=== PATIENT | male | born 1980 | race Caucasian/White ===

== ENCOUNTER 2020-12-10 11:15 | Emergency (ER) | payer OTHER, SELFPAY ==
[2020-12-10 11:28] VITALS: BP 132/86; PULSE 86; RESP 20; TEMP 36.9; O2SAT 98
--- NOTE | 2020-12-10 12:05 | ED.URI ---
HPI - URI/Sore Throat General Chief Complaint: Upper Respiratory Infection Stated Complaint: SINUS CONGESTION Source: patient Mode of arrival: ambulatory Limitations: no limitations History of Present Illness HPI Narrative: Patient is a 40-year-old male who presents complaining of facial pain and pressure, congestion and headache intermittently x1.5 weeks. He reports a history of Covid in July. He denies fever, chest pain, cough, shortness of breath, nausea, vomiting or diarrhea. He denies taking any [id number] medications for pain relief at this time. He denies significant medical history and takes no daily medications. MD elicited complaint: nasal congestion and sinus pain Related Data Allergies Allergy/AdvReac Type Severity Reaction Status Date / Time azithromycin Allergy Mild HIVES LAST Verified 12/10/20 11:21 DAY OF COURSE Review of Systems Review of Systems: Narrative: CONSTITUTIONAL: Denies fever, chills, or sweats. EYES: Denies visual changes, redness, or discharge. ENT: Reports congestion and sinus pain CARDIOVASCULAR: Denies chest pain, palpitations, or edema. RESPIRATORY: Denies cough or dyspnea. GASTROINTESTINAL: Denies abdominal pain, nausea, vomiting, or diarrhea. GENITOURINARY: Denies dysuria or hematuria. SKIN: Denies rash or itching. MUSCULOSKELETAL: Denies back pain, joint pain, or myalgia. NEUROLOGIC: Denies headache, numbness, dizziness, or weakness. PSYCHIATRIC: Denies anxiety or depression. [facility] Past Medical History Medical History COVID-19 08/19 Hearing loss in left ear Male erectile dysfunction, unspecified Sebaceous cyst (~2017) Surgical History Surgical History No significant past surgical history Family History Family History Father Diabetes mellitus Family history of glaucoma Grandparent Diabetes mellitus Family history of lung cancer Mother Hypertension Social History Social History Alcohol intake: current Drinks per week: 6 Substance use: never Gender identity (if verbalized by the patient): Male Spiritual care concerns: No Agree to blood products: Yes Comments At the time of signature, I have reviewed and agree with nursing past medical, surgical, social, and family history unless otherwise noted. Please see nursing chart for further information. There is no relevant family history pertinent to the presenting complaint. Exam Narrative: Exam Narrative: GENERAL: Well-appearing, well-nourished, and in no acute distress. HEAD: Normocephalic, atraumatic. EYES: EOMI. No redness or drainage. Conjunctiva are normal. ENT: Mucous membranes pink and moist. Nares clear. No rhinorrhea. Maxillary sinus tenderness with palpation TMs normal bilaterally. Throat normal. Uvula midline. NECK: AROM. Supple. No lymphadenopathy. CHEST: No respiratory distress. HEART: Regular rate and rhythm. EXTREMITIES: Normal range of motion. SKIN: Warm, dry, no rash. NEURO: No focal deficits. Alert and oriented x3. Gait steady. PSYCH: Normal affect. No signs of depression or anxiety. Course Vital Signs Vital signs: Vital Signs Temperature 36.9 C 12/10/20 11:28 Pulse Rate 86 12/10/20 11:28 Respiratory Rate 20 12/10/20 11:28 Blood Pressure 132/86 12/10/20 11:28 Pulse Oximetry 98 12/10/20 11:28 Temperature 36.9 C 12/10/20 11:28 Pulse Rate 86 12/10/20 11:28 Respiratory Rate 20 12/10/20 11:28 Blood Pressure 132/86 12/10/20 11:28 Pulse Oximetry 98 12/10/20 11:28 Reviewed MDM - URI/Sore Throat Differential Diagnosis Differential diagnosis: Likely upper respiratory infection, sinusitis, viral infection and pharyngitis Medical Records Attestation: I reviewed the patient's medical records. Critical
== END 2020-12-10 11:50 | disposition home or self-care (01) ==
PROVIDERS: Emergency Provider Nurse Practitioner
DX: J01.00 Acute maxillary sinusitis, unspecified (principal); Z86.16 Personal history of COVID-19
CPT/HCPCS: 99213; G0463

== ENCOUNTER 2025-04-19 09:07 | Observation (INO) | payer OTHER, SELFPAY ==
--- NOTE | ~2025-04-19 | CT_ITS ---
EXAMINATION: CT facial bones w con DATE: 04/19/2025 12:22 INDICATION: Right facial cellulitis TECHNIQUE: Computed tomography (CT) of the facial bones was performed with 75 cc Omnipaque intravenou s contrast. The dose-length product was 293.82 mGy-cm. Automated exposure control and iterative recon struction technique were employed. COMPARISON: None FINDINGS: There is right periorbital soft tissue swelling. No post septal abnormalities. No abscess. There is mild mucosal thickening of the left maxillary sinus. Study limited by motion artifact. No ab normal enhancement. IMPRESSION: 1. Right periorbital soft tissue swelling, most likely secondary to preseptal cellulitis. Differentia l diagnosis includes allergic reaction/angioedema and posttraumatic change. No abscess identified. Reviewed, dictated and finalized at location A. IMPRESSION: 1. Right periorbital soft tissue swelling, most likely secondary to preseptal c ellulitis. Differential diagnosis includes allergic reaction/angioedema and pos ttraumatic change. No abscess identified.
--- OUTSIDE RECORDS SUMMARY | 2025-04-19 09:13 | XMS_ITS | Encounter Summary ---
Author Organization [facility] Healthcare Address [address] [place] [id number] Care Team Providers Care Machine Operator General Name Role Phone Unknown, Notinfile Primary Care Provider Unavail able Reason for Visit * Reason Comments Rash Right face Encounter Details Date Type Department Care Team (Late st Contact Info) Description 04/18/2025 9:00 AM CDT Office Visit [facility] at [address] [address] Matt Gillespie NP [address] [facility] [address] [place] [address] Abscess (Primary Dx) Social History Tobacco Use Types Packs/Day Years Used Date Smoking Tobacco: Never Assessed Sex and Gender Information Value Date Recorded Sex Assigned at Not on file 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 Gender Identity Not on file Sexual Orientation Not on file documented as of this encounter Last Filed Vital Signs Vital Sign Reading Time Taken Comments Blood Pressure 139/90 04/18/2025 8:43 AM CDT Pulse 70 04/18/2025 8:43 AM CDT Temperature 36.8 C (98.3 F) 04/18/2025 8:43 AM CDT Respiratory Rate 16 04/18/2025 8:43 AM CDT Oxygen Saturation 99% 04/18/2025 8:43 AM CDT Inhaled Oxygen Concentration - - Weight 82.6 kg (182 lb) 04/18/2025 8:43 AM CDT Height - - Body Mass Index 28.51 06/17/2024 6:33 PM CDT documented in this encounter Patient Instructions * Patient Instructions* Matt Gillespie NP - 04/18/2025 9:00 AM CDT Keep area clean and dry. Wash daily with soap and water Go to ER or Seek immediate medical attention if you develop: A fast heart rate A fever >100.3F Severe pain Increased pain Rapidly worsening redness and swelling Red streaking coming from site of infection Increased drainage from site Nausea or vomiting A crackling or popping sound or sensation under the skin (this is called crepitus) A dark brown or black appearance to your skin Return to the [facility] or your Primary Care Physician if the red border around the infection area is increasing and/or if symptoms are not improving in 24-48 hours. Doxycycline should be taken with at least 240 mL (8 oz) of water to minimize the risk of the tabletgetting stuck in the esophagus and causing local erosions. Do not take vitamin-D while on doxycycline. Patients should stand or sit upright for at least 30 minutes and should eat a meal after taking medication. You can get a sunburn more easily while taking doxycycline. Wear sunscreen when out side, hat etc, to protect against sunburn * Attachments The following attachments cannot be sent through Care Everywhere. * Abscess (AfterCare(R) Instructions(ER/ED)) (Mexican) documented in this encounter Ordered Prescriptions Prescription Sig Dispense Quantity Refills Last Filled Start Date End Date mupirocin (BACTROBAN) 2 % ointmentIndication s:Abscess Apply topically 3 (three) times a day for 10 days 22 g 04/18/2025 5 doxycycline (VIBRAMYCIN) 100 mg capsuleIndications :Abscess Take 1 tablet/capsule (100 mg total) by mouth 2 (two) times a day for 7 days 14 tablet/capsule 04/18/2025 5 documented in this encounter Progress Notes * Matt Gillespie NP - 04/18/2025 9:00 AM CDT Images from the original note were not included. Subjective/Objective Patient ID: Oliverio Rasmussen is a 44 y.o. male. This patient has verbally consented to recording this visit in order to utilize AI technology in generating this note. Chief Complaint Rash (Right face) History of Present Illness Oliverio Rasmussen is a 44 year old male who presents with swelling and possible infection on the right cheek. Swelling on the right cheek began earlier in the week, with a hard texture and a mole in the area. There is no significant drainage, only clear fluid. Home treatments with warm and cold compresses have not improved the condition. He recalls an allergic reaction to penicillin, resulting in a rash. 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 Review of Systems All other systems reviewed and are negative. Physical Exam HEENT: Firm abscess on right cheek, no drainage. Physical Exam Vitals and nursing note reviewed. Constitutional: General: He is not in acute distress. Appearance: Normal appearance. He is not ill-appearing. HENT: Head: Cardiovascular: Rate and Rhythm: Normal rate. Pulmonary: Effort: Pulmonary effort is normal. Skin: General: Skin is warm and dry. Capillary Refill: Capillary refill takes less than 2 seconds. Findings: Abscess present. Neurological: Mental Status: He is alert and oriented to person, place, and time. Gait: Gait normal. Vitals: 04/18/25 0843 BP: 139/90 Pulse: 70 Resp: 16 Temp: 36.8 ??C (98.3 ??F) TempSrc: Oral SpO2: 99% Weight: 82.6 kg (182 lb) No results found. No past medical history on file. Current Outpatient Medications: azithromycin (ZITHROMAX) 250 mg tablet, Take 2 tablets the first day, then 1 tablet daily for 4 days. (Patient not taking: Reported on 04/18/2025), Disp: 6 tablet, Rfl: 0 doxycycline (VIBRAMYCIN) 100 mg capsule, Take 1 tablet/capsule (100 mg total) by mouth 2 (two) times a day for 7 days, Disp: 14 tablet/capsule, Rfl: 0 mupirocin (BACTROBAN) 2 % ointment, Apply topically 3 (three) times a day for 10 days, Disp: 22 g, Rfl: 0 Allergies Allergen Reactions Penicillins Hives Social History Tobacco Use Smoking status: Not on file Smokeless tobacco: Not on file Substance and Sexual Activity Drug use: Not on file Sexual activity: Not on file Alcohol Use: Not on file No past surgical history on file. Procedures Assessment/Plan 1. Abscess (Primary) - doxycycline (VIBRAMYCIN) 100 mg capsule; Take 1 tablet/capsule (100 mg total) by mouth 2 (two) times a day for 7 days Dispense: 14 tablet/capsule; Refill: 0 - mupirocin (BACTROBAN) 2 % ointment; Apply topically 3 (three) times a day for 10 days Dispense: 22 g; Refill: 0 Results No results found for this or any previous visit (from the past 4 hours). Assessment & Plan Facial Abscess Firm swelling on right cheek, likely abscess. Not ready for incision and drainage. Doxycycline chosen for MRSA coverage due to penicillin allergy. Caution advised for sun sensitivity. - Prescribe doxycycline for MRSA coverage. Advise sun protection measures. - Prescribe topical antibiotic. - Instruct warm compresses 10 minutes, four times daily. - Advise daily cleaning with soap and water. - Recommend taking doxycycline with full glass of water. - Provide educational materials on abscesses, skin infections, and doxycycline. - Monitor for changes in size or symptoms, consider culture if abscess enlarges or changes. Education Keep area clean and dry. Wash daily with soap and water Go to ER or Seek immediate medical attention if you develop: A fast heart rate A fever >100.3F Severe pain Increased pain Rapidly worsening redness and swelling Red streaking coming from site of infection Increased drainage from site Nausea or vomiting A crackling or popping sound or sensation under the skin (this is called crepitus) A dark brown or black appearance to your skin Return to the [facility] or your Primary Care Physician if the red border around the infection area is increasing and/or if symptoms are not improving in 24-48 hours. Doxycycline should be taken with at least 240 mL (8 oz) of water to minimize the risk of the tabletgetting stuck in the esophagus and causing local erosions. Do not take vitamin-D while on doxycycline. Patients should stand or sit upright for at least 30 minutes and should eat a meal after taking medication. You can get a sunburn more easily while taking doxycycline. Wear sunscreen when out side, hat etc, to protect against sunburn Disposition Treatment plan including expectations, follow up, and return precautions discussed with patient/parent, verbalizes understanding. Medication dosage, use, and potential adverse reactions discussed with patient/parent. Advised to follow up with PCP if symptoms do not resolve as expected or sooner if condition worsens. Signs/symptoms warranting ER evaluation reviewed. Patient and/or guardian was given an opportunity to ask questions, questions answered. Matt Gillespie NP This office note has been partially dictated using M*Modal software, and as a result portions of the record may have been created with this software. Occasional wrong-word or '[id number]' substitutions may have occurred due to the inherent limitations of voice recognition software. Read the chartcarefully and recognize, using context, where substitutions have occurred. documented in this encounter Plan of Treatment Not on file documented as of this encounter Visit Diagnoses Diagnosis Abscess- Primary Cellulitis and abscess of unspecified site documented in this encounter Care Teams Machine Operator General Relationship Specialty Start Date End Date Unknown, Notinfile PCP - General 06/17/24 documented as of this encounter
--- OUTSIDE RECORDS SUMMARY | 2025-04-19 09:13 | XMS_ITS | Clinical Summary ---
Author Organization [facility] [employer] Address [address] [place] [address] Care Team Providers Care Press Operator Helper Name Role Phone Unavailable Primary Care Provider Unavailabl e Source Comments [facility] [employer],non-owned Affiliates and Associated Physician Practices is amultiple site organization consisting of ambulatory clinics and hospital sitesin [place], [place], [place] and [place]. This disclosure is being madepursuant to the Care Everywhere program and may not contain all information available regarding this patient. Last updated 18.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 Gender Identity Not on file Sexual Orientation Not on file Plan of Treatment Health Maintenance Due Date Last Done Comments COLOGUARD (AGES 45-75) - COL ON CA SCREENING 1978 COLON MONITORING 1978 COLONOSCOPY - COLON CA SCREENING 1978 CT COLONOGRAPHY - COLON CA SCREENING 1978 Colorectal Cancer Screening 1978 FIT - COLON CA SCREENING 1978 FLEX SIG - COLON CA SCREENING 1978 LIPID TESTING 1978 HIV SCREENING 1993 HEPATITIS C SCREENING 04/19/1996 DTAP/TDAP/TD VACCINES (1 - Tdap) 1997 HEPATITIS B VACCINE (1 of 3 - 19+ 3-dose series) 1997 COVID-19 VACCINE (1 - 2023-2 5 season) 2024 DEPRESSION SCREENING 09/30/2024 INFLUENZA VACCINE (#1) 2025 ZOSTER VACCINE (1 of 2) 2028 HIB VACCINE Aged Out No longer eligi ble based on patient's age to complete this topic HPV VACCINE Aged Out No longer eligi ble based on patient's age to complete this topic MENINGOCOCCAL (Group B) VACC INE SHARED DECISION-MAKING Aged Out No longer eligibl e based on patient's age to complete this topic MENINGOCOCCAL GROUPS A/C/Y/W VACCINE Aged Out No longer eligible b ased on patient's age to complete this topic PNEUMOCOCCAL VACCINE Aged Out No long er eligible based on patient's age to complete this topic Insurance ANTH
--- OUTSIDE RECORDS SUMMARY | 2025-04-19 09:13 | XMS_ITS | Clinical Summary ---
Author Organization [facility] Address [address] [place] [id number] Care Team Providers Care Formwork Carpenter Name Role Phone Unavailable Primary Care Provider Unavailabl e Social History Tobacco Use Types Packs/Day Years Used Date Smoking Tobacco: Never Assessed Sex and Gender Information Value Date Recorded Sex Assigned at Not on file Legal Sex Male 7:08 PM CDT Gender Identity Not on file Sexual Orientation Not on file Plan of Treatment Health Maintenance Due Date Last Done Comments Colorectal Cancer Screening Colonoscopy (10 Years) 1978 Annual Physical 1981 Hepatitis C 1996 DTaP, Tdap and Td Vaccines ( 1 - Tdap) 1997 Hepatitis B Vaccines (1 of 3 - 19+ 3-dose series) 1997 COVID-19 Vaccine ( - 2023-2 5 season) 2024 Meningococcal B Vaccine Aged Out No l onger eligible based on patient's age to complete this topic Meningococcal Vaccine Aged Out No jorge ashlie eligible based on patient's age to complete this topic Pneumococcal Vaccine: Pediat rics (0 to 5 Years) and At-Risk Patients (6 to 49 Years) Aged Out No longer eligible b ased on patient's age to complete this topic RSV Immunizations Under 20 Months Aged Out No longer eligible based on patient's age to complete this topic
--- OUTSIDE RECORDS SUMMARY | 2025-04-19 09:13 | XMS_ITS | Clinical Summary ---
Author Organization [address] Address [address] [place] [id number] Care Team Providers Care Radio Frequency Design Engineer Name Role Phone Unknown, Notinfile Primary Care Provider Unavail able Allergies Active Allergy Reactions Criticality Noted Date Comments Penicillins Hives Medium 06/17/2024 Medications azithromycin (ZITHROMAX) 250 mg tabletIndicatio ns:Strep throat Take 2 tablets the first day, then 1 tablet daily for 4 days. 6 tablet 4 Active Additional Information Patient not taking.Reported on 04/19/2025 doxycycline (VIBRAMYCIN) 100 mg capsuleIndicati ons:Abscess Take 1 tablet/capsule (100 mg total) by mouth 2 (two) times a day for 7 days 14 tablet/capsu le 5 04/25/20 25 Active mupirocin (BACTROBAN) 2 % ointmentIndicat ions:Abscess Apply topically 3 (three) times a day for 10 days 22 g 5 04/28/20 25 Active Active Problems No known active problems Encounters Date Type Department Care Team Description 04/19/2025 8:45 AM CDT Office Visit [facility] at [address] [address] Ewelina Ingram NP Facial abscess (Primary Dx); Eye swelling, right; Nasal swelling 04/18/2025 9:00 AM CDT Office Visit [facility] Medical [facility] at [address] [address] Matt Gillespie NP Abscess (Primary Dx) from Last 3 Months Social History Tobacco Use Types Packs/Day Years Used Date Smoking Tobacco: Never Assessed Sex and Gender Information Value Date Recorded Sex Assigned at Not on file 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 Gender Identity Not on file Sexual Orientation Not on file Obstetrics History Last Filed Vital Signs Vital Sign Reading Time Taken Comments Blood Pressure 136/84 04/19/2025 8:43 AM CDT Pulse 90 04/19/2025 8:43 AM CDT Temperature 36.6 C (97.9 F) 04/19/2025 8:43 AM CDT Respiratory Rate 20 04/19/2025 8:43 AM CDT Oxygen Saturation 98% 04/19/2025 8:43 AM CDT Inhaled Oxygen Concentration - - Weight 82.6 kg (182 lb) 04/19/2025 8:43 AM CDT Height 170.2 cm (5' 7) 06/17/2024 6:33 PM CDT Body Mass Index 28.51 06/17/2024 6:33 PM CDT Plan of Treatment Health Maintenance Due Date Last Done Comments Colon Cancer Screening-Colonoscopy 1978 Depression Screening 1978 Hepatitis C Screening 1978 DTaP/Tdap/Td Vaccine (1 - Tdap) 1989 Hepatitis B Screening 1996 Regular Well Visit/Exam 18-64 1996 Influenza Vaccine (#1) 2025 HPV Vaccines Aged Out No longer eligi ble based on patient's age to complete this topic Pneumococcal vaccine <65 Aged Out No longer eligible based on patient's age to complete this [place] [address] [place] [id number] [facility] Care Teams Radio Frequency Design Engineer Relationship Specialty Start Date End Date Unknown, Notinfile PCP - General 06/17/24
--- OUTSIDE RECORDS SUMMARY | 2025-04-19 09:13 | XMS_ITS | Encounter Summary ---
Author Organization [facility] Healthcare Address [address] [place] [id number] Care Team Providers Care Tire Vulcanizer Name Role Phone Unknown, Notinfile Primary Care Provider Unavail able Reason for Visit * Reason Comments Eye Problem Pt reports eye swell ing has worsened since seen at yesterday. C/o now his face is so swollen he is having difficulty breathing out of R nostril. Encounter Details Date Type Department Care Team (Late st Contact Info) Description 04/19/2025 8:45 AM CDT Office Visit 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
--- OUTSIDE RECORDS SUMMARY | 2025-04-19 09:13 | XMS_ITS | Encounter Summary ---
Author Organization [facility] Address [address] [facility] [place] [address] Care Team Providers Care Senior Dot Net Developer Name Role Phone Unavailable Primary Care Provider Unavailabl e Encounter Details Date Type Department Care Team (Late st Contact Info) Description 10/23/2019 Lab Requisition [facility] [address] 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 Received: 10/23/2019 09:43 AM Pathologist: Tiana Melendez MD Specimen: Skin, left crown 0 1:31 PM SAWMILL TALLY CLERK DERMATOPATHOLOGY LABORATORY Final Diagnosis Specimen A. SKIN, left crown: EPIDERMOID CYST (L72.0) 0 1:31 PM SAWMILL TALLY CLERK DERMATOPATHOLOGY LABORATORY at 1331 SAWMILL TALLY CLERK Clinical History R/O cyst. Cystic nodule. 0 1:31 PM SAWMILL TALLY CLERK DERMATOPATHOLOGY LABORATORY Gross Description Specimen A: Received is one formalin filled container labeled with the patient's name and designated left crown. The specimen consists of a [id number] excision, bisected. Jar 0. 0 1:31 PM [facility] DERMATOPATHOLOGY LABORATORY Microscopic Description Specimen A. SKIN, left crown: Within the dermis, there is a space lined by epithelium that resembles normal epidermis and the infundibular portion of the hair follicle. 0 1:31 PM [facility] DERMATOPATHOLOGY LABORATORY Disclaimer An external and internal positive and negative controls are appropriate for the histochemical, immunohistochemical and immunofluorescence stain(s) in this case (if any), except where stated explicitly. The performance characteristics of the stain(s) cited in this report were developed and its performance characteristic determined by the Dermatopathology Laboratory at [facility], directed by Dr. Vlad Cr. These tests need not be, and therefore are not, approved by the [place] Food and Drug Administration. The tests are used for clinical purposes. Billing Codes Specimen Charges Stain Charges 70639 1 0 1:31 PM [facility] DERMATOPATHOLOGY LABORATORY Embedded Images 0 1:31 PM [facility] DERMATOPATHOLOGY LABORATORY Pathology/Cytolog y TISSUE SPECIMEN FROM SKIN / Unknown 10/22/2019 10/23/2019 9:43 AM SAWMILL TALLY CLERK us Farzana Moreno MD LAB - PATHOLOGY/CYTOLOGY ORD ERABLES Final Result DERMATOPATHOLOGY LABORATORY [facility] - Department of Dermatology [address] [place] [address] [address] [place] [address], [facility] [phone] documented in this encounter Visit Diagnoses Not on filedocumented in this encounter
--- OUTSIDE RECORDS SUMMARY | 2025-04-19 09:13 | XMS_ITS | Referral Summary ---
Author Organization [address] Address [address] [place] [phone] Care Team Providers Care Lifeline Representatives Name Role Phone Unknown, Notinfile Primary Care Provider Unavail able Encounters Date Type Department Care Team Description 04/19/2025 8:45 AM CDT Office Visit [facility] at [address] [phone] Ewelina Ingram NP Facial abscess (Primary Dx); Eye swelling, right; Nasal swelling 04/18/2025 9:00 AM CDT Office Visit [facility] Care at [address] [phone] Matt Gillespie NP Abscess (Primary Dx) from Last 3 Months Allergies Active Allergy Reactions Criticality Noted Date [...] Active Active Problems No known active problems Social History Tobacco Use Types Packs/Day Years Used Date Smoking Tobacco: Never Assessed Sex and Gender Information Value Date Recorded Sex Assigned at Not on file 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
[2025-04-19 10:37] VITALS: BP 143/95; PULSE 81; RESP 20; TEMP 36.9; O2SAT 98
--- OUTSIDE RECORDS SUMMARY | 2025-04-19 10:50 | XMS_ITS | Encounter Summary ---
Author Organization [facility] Address [address] [facility] [place] [address] Care Team Providers Care Engine Service Repairer Name Role Phone Unavailable Primary Care Provider Unavailabl e Encounter Details Date Type Department Care Team (Late st Contact Info) Description 10/23/2019 Lab Requisition [facility] DermPath Lab [address] [facility], [place] [phone] Farzana Moreno MD [address] [facility] 3 [place] [address] Social History Tobacco Use Types Packs/Day Years Used Date Smoking Tobacco: Never Assessed Sex and Gender Information Value Date Recorded Sex Assigned at Not on file 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 Gender Identity Not on file Sexual Orientation Not on file documented as of this encounter Plan of Treatment Not on file documented as of this encounter Procedures Procedure Name Priority Date/Time Associated Diagnosis Comments DERMATOPATHOLOGY Routine 10/22/2019 12:0 0 AM AIRPORT ELECTRICIAN documented in this encounter Results * DERMATOPATHOLOGY (10/22/2019 12:00 AM AIRPORT ELECTRICIAN) Case Report Dermatopathology Report Case: [id number] Authorizing Provider: Farzana Moreno MD Collected: 10/22/2019 12:00 AM Ordering Location: [facility] DermPath Lab Received: 10/23/2019 09:43 AM Pathologist: Tiana Melendez MD Specimen: Skin, left crown 0 1:31 PM AIRPORT ELECTRICIAN DERMATOPATHOLOGY LABORATORY Final Diagnosis Specimen A. SKIN, left crown: EPIDERMOID CYST (L72.0) 0 1:31 PM AIRPORT ELECTRICIAN DERMATOPATHOLOGY LABORATORY at 1331 AIRPORT ELECTRICIAN Clinical History R/O cyst. Cystic nodule. 0 1:31 PM AIRPORT ELECTRICIAN DERMATOPATHOLOGY LABORATORY Gross Description Specimen A: Received is one formalin filled container labeled with the patient's name and designated left crown. The specimen consists of a [id number] excision, bisected. Jar 0. 0 1:31 PM [facility] DERMATOPATHOLOGY LABORATORY Microscopic Description Specimen A. SKIN, left crown: Within the dermis, there is a space lined by epithelium that resembles normal epidermis and the infundibular portion of the hair follicle. 0 1:31 PM [facility] DERMATOPATHOLOGY LABORATORY Disclaimer An external and internal positive and negative controls are appropriate for the histochemical, immunohistochemical and immunofluorescence stain(s) in this case (if any), except where stated explicitly. The performance characteristics of the stain(s) cited in this report were developed and its performance characteristic determined by the Dermatopathology Laboratory at [facility], directed by Dr. Vlad Cr. These tests need not be, and therefore are not, approved by the [place] Food and Drug Administration. The tests are used for clinical purposes. Billing Codes Specimen Charges Stain Charges 16612 1 0 1:31 PM [facility] DERMATOPATHOLOGY LABORATORY Embedded Images 0 1:31 PM [facility] DERMATOPATHOLOGY LABORATORY Pathology/Cytolog y TISSUE SPECIMEN FROM SKIN / Unknown 10/22/2019 10/23/2019 9:43 AM AIRPORT ELECTRICIAN us Farzana Moreno MD LAB - PATHOLOGY/CYTOLOGY ORD ERABLES Final Result DERMATOPATHOLOGY LABORATORY [facility] - Department of Dermatology [address] [place] [address] [address] [place] [address], [facility] [phone] documented in this encounter Visit Diagnoses Not on filedocumented in this encounter
--- OUTSIDE RECORDS SUMMARY | 2025-04-19 10:50 | XMS_ITS | Encounter Summary ---
Author Organization [facility] Address [address] [place] [address] Care Team Providers Care Data Warehousing Manager Name Role Phone Unknown, Notinfile Primary Care Provider Unavail able Reason for Visit * Reason Comments Eye Problem Pt reports eye swell ing has worsened since seen at yesterday. C/o now his face is so swollen he is having difficulty breathing out of R nostril. 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
--- OUTSIDE RECORDS SUMMARY | 2025-04-19 10:50 | XMS_ITS | Clinical Summary ---
Author Organization [facility] Address [address] [place] [address] Care Team Providers Care Fbi Profiler Name Role Phone Unavailable Primary Care Provider Unavailabl e Source Comments [facility],non-owned Affiliates and Associated Physician Practices is amultiple site organization consisting of ambulatory clinics and hospital sitesin [place], [place], [place] and [place]. This disclosure is being madepursuant to the Care Everywhere program and may not contain all information available regarding this patient. 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
--- OUTSIDE RECORDS SUMMARY | 2025-04-19 10:50 | XMS_ITS | Clinical Summary ---
Author Organization [facility] Address [address] [place] [address] Care Team Providers Care Real Estate Administrative Assistant Name Role Phone Unavailable Primary Care Provider [...]
--- OUTSIDE RECORDS SUMMARY | 2025-04-19 10:50 | XMS_ITS | Encounter Summary ---
Author Organization [facility] Address [address] [place] [address] Care Team Providers Care Softball Coach Name Role Phone Unknown, Notinfile Primary Care Provider Unavail able Reason for Visit * Reason Comments Rash Right face Encounter Details Date Type Department Care Team (Late st Contact Info) Description 04/18/2025 9:00 AM CDT Office Visit [facility] at [address] [address] Mtat Gillespie NP [address] [facility] [address] [place] [address] Abscess (Primary Dx) Social History Tobacco Use Types Packs/Day Years Used Date Smoking Tobacco: Never Assessed Sex and Gender Information Value Date Recorded Sex Assigned at Not on file 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 * Abscess (AfterCare(R) Instructions(ER/ED)) (Nauruan) documented in this encounter Ordered Prescriptions Prescription [...] created with this software. Occasional wrong-word or '[id number]-w-gypb' substitutions may have occurred due to the inherent limitations of voice recognition software. Read the chartcarefully and recognize, using context, where substitutions have occurred. documented in this encounter Plan of Treatment Not on file documented as of this encounter Visit Diagnoses Diagnosis Abscess- Primary Cellulitis and abscess of unspecified site documented in this encounter Care Teams Softball Coach Relationship Specialty Start Date End Date Unknown, Notinfile PCP - General 06/17/24 documented as of this encounter
--- OUTSIDE RECORDS SUMMARY | 2025-04-19 10:51 | XMS_ITS | Clinical Summary ---
Author Organization [address] Address [address] [place] [phone] Care Team Providers Care Dice Dealer Name Role Phone Unknown, Notinfile Primary Care [...] Description 04/19/2025 8:45 AM CDT Office Visit [facility] at [address] [phone] Ewelina Ingram NP Facial abscess (Primary Dx); Eye swelling, right; Nasal swelling 04/18/2025 9:00 AM CDT Office Visit [facility] at [address] [address] Matt Gillespie NP Abscess (Primary Dx) from Last 3 Months Social History Tobacco Use Types Packs/Day Years Used Date Smoking Tobacco: Never Assessed Sex and Gender Information Value Date Recorded Sex Assigned at Not on file 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
--- OUTSIDE RECORDS SUMMARY | 2025-04-19 10:51 | XMS_ITS | Referral Summary ---
Author Organization [address] Address [address] [place] [phone] Care Team Providers Care Registered Nurse Obstetrics Name Role Phone Unknown, Notinfile Primary Care Provider Unavail able Encounters Date Type Department Care Team Description 04/19/2025 8:45 AM CDT Office Visit [facility] at [address] [phone] Ewelina Ingram NP Facial abscess (Primary Dx); Eye swelling, right; Nasal swelling 04/18/2025 9:00 AM CDT Office Visit [facility] at [address] [phone] Matt Gillespie NP Abscess (Primary [...] on file 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
[2025-04-19 11:22] LABS: Hematocrit 45.7 % (42.0-52.0); Hemoglobin 16.1 g/dL (14.0-18.0); Immature Granulocyte Percent A 0.3 % (0-0.5); Lymphocytes Absolute Auto 1.09 K/mm3 (0.9-3.2); Mean Corpuscular HGB Conc 35.2 g/dl (32-36); Mean Corpuscular Hemoglobin 30.4 pg (26-34); Mean Corpuscular Volume 86.2 fl (80-100); Nucleated Red Blood Cells Absolute Auto 0.000 K/mm3 (0.0-0.012); Nucleated Red Blood Cells Perc 0.0 % (0.0-0.2); Platelet Count Result 252 k/mm3 (150-375); Red Blood Count 5.30 M/mm3 (4.6-6.20); White Blood Count 6.9 K/mm3 (4.5-10.0)
--- NOTE | 2025-04-19 11:34 | ED_ITS ---
HPI - Skin/Abscess/Foreign Bdy General Chief complaint: Skin/Abscess/Foreign Body <WING Pérez Last Filed: 04/19/25 16:38> Stated complaint: facial abscess <WING Pérez Last Filed: 04/19/25 16:38> Time Seen by Provider: 04/19/25 10:42 <WING Pérez Last Filed: 04/19/25 16:38> Source: patient <WING Pérez Last Filed: 04/19/25 16:38> Mode of arrival: ambulatory <WING Pérez Filed: 04/19/25 16:38> Limitations: no limitations <WING Pérez Last Filed: 04/19/25 16:38> History of Present Illness HPI narrative: Patient is a 44 y/o male who presents to the ED with c/o R facial/eye swelling. Patient reports he 1st noticed an area of swelling and redness around a mole on his right facial cheek. He thought he was developing a pimple around the mole. He went to an urgent care yesterday and was prescribed doxycycline. Reports the redness has continued to spread, having swelling/redness to his right inferior periorbital region. Denies fevers. Denies hx of DM. Denies pain in his R eye, vision changes, pain with eye movements. <WING Pérez Last Filed: 04/19/25 16:38> Related Data Home medications: Home Medications ?Medication ?Instructions ?Recorded ?Confirmed ?Last Taken ?Type doxycycline hyclate 100 mg capsule 100 mg PO Q24H 04/19/25 04/19/25 04/19/25 History ibuprofen 200 mg tablet (Advil) 400 mg PO Q6H PRN pain 04/19/25 04/19/25 04/19/25 History mupirocin 2 % topical ointment 1 applic topical BID 04/19/25 04/19/25 04/18/25 History <WING Pérez Last Filed: 04/19/25 16:38> Allergies/Adverse reactions: Allergies Allergy/AdvReac Type Severity Reaction Status Date / Time Penicillins Allergy Hives Verified 04/19/25 16:06 <Zaynab Pretty PA-C - Last Filed: 04/19/25 16:38> Review of Systems 2 Review of Systems: All systems reviewed & are unremarkable except as noted in HPI. <Zaynab Pretty PA-C - Last Filed: 04/19/25 16:38> All systems reviewed & are unremarkable except as noted in HPI and below < Zaynab Pretty PA-C - Last Filed: 04/19/25 16:38> [facility] Past Medical History Medical History: Medical History COVID-19 08/19 Hearing loss in left ear Male erectile dysfunction, unspecified Sebaceous cyst (~2017) <Zaynab Pretty PA-C - Last Filed: 04/19/25 16:38> Surgical History Surgical History: Surgical History No significant past surgical history <Zaynab Pretty PA-C - Last Filed: 04/19/25 16:38> Family History Family History: Family History Father Diabetes mellitus Family history of glaucoma Grandparent Diabetes mellitus Family history of lung cancer Mother Hypertension <Zaynab Pretty PA-C - Last Filed: 04/19/25 16:38> Social History Social History: Social History Smoking status: Never smoker Alcohol intake: current Drinks per week: 1 Substance use: never Substance use type: does not use Do You Feel Safe in your Home?: Yes Lack of Transportation: No Lack of Food: Never True Current Housing: I Have Housing Concerned About Future Housing: No Difficulty Paying Gas/Electric Bills: No Difficulty Paying for Meds: No Currently Unemployed: No Education: High School Diploma/GED Difficulty w/ Childcare or Family Care: No Living arrangements: alone Occupation/Education: occupation Gender identity (if verbalized by the patient): Male Spiritual care concerns: No Agree to blood products: Yes <Zaynab Pretty PA-C - Last Filed: 04/19/25 16:38> Exam 2 Narrative: GENERAL: Well appearing, well-nourished, non-toxic, in no acute distress. HEAD: Normocephalic, atraumatic. EENT: R maxillary region with raised erythematous indurated lesion w/ slight scabbing present. No pustular formation or drainage. Moderate induration surrounding lesion. Erythema and moderate swelling extending up into her right eye inferior periorbital region. Eye itself is normal. PERRLA, EOMI. No pain with extraocular movements. Conjunctivae is clear. No foreign body. No chemosis or proptosis. No oral mucosal lesions, dental caries, or evidence of abscess intraorally. RESPIRATORY: Airway patent, respirations nonlabored. Clear to auscultation bilaterally, no rales, rhonchi, wheezing. CARDIOVASCULAR: Regular rate and rhythm MUSCULOSKELETAL: Moves all extremities. No gross deformities. SKIN: Warm, dry, normal color. NEURO: A&O X3. Speech clear. Cranial nerves II-XII grossly intact. Steady gait. No ataxic movements. PSYCHIATRIC: Appropriate mood and affect. Normal interaction. <Zaynab Pretty PA-C - Last Filed: 04/19/25 16:38> Course SENIOR UI UX DEVELOPER/PA Physician Supervision For this patient encounter, I reviewed the SENIOR UI UX DEVELOPER or PA documentation, treatment plan, and medical decision making; and I had [id number] time with this patient. <Ed Gallardo MD - Last Filed: 04/19/25 21:51> Vital Signs Vital signs: Vital Signs Temperature 98.5 F 04/19/25 10:37 Pulse Rate 81 04/19/25 10:37 Respiratory Rate 20 04/19/25 10:37 Blood Pressure 143/95 H 04/19/25 10:37 Pulse Oximetry 98 04/19/25 10:37 Oxygen Delivery Room Air 04/19/25 10:37 Temperature 97 F L 04/19/25 20:14 Pulse Rate 70 04/19/25 20:14 Respiratory Rate 20 04/19/25 20:14 Blood Pressure 140/83 04/19/25 20:14 Pulse Oximetry 97 04/19/25 20:14 Oxygen Delivery Room Air 04/19/25 10:37 <Zaynab Pretty PA-C - Last Filed: 04/19/25 16:38> Vital Signs Temperature 98.5 F 04/19/25 10:37 Pulse Rate 81 04/19/25 10:37 Respiratory Rate 20 04/19/25 10:37 Blood Pressure 143/95 H 04/19/25 10:37 Pulse Oximetry 98 04/19/25 10:37 Oxygen Delivery Room Air 04/19/25 10:37 Temperature 97 F L 04/19/25 20:14 Pulse Rate 70 04/19/25 20:14 Respiratory Rate 20 04/19/25 20:14 Blood Pressure 140/83 04/19/25 20:14 Pulse Oximetry 97 04/19/25 20:14 Oxygen Delivery Room Air 04/19/25 10:37 <Ed Gallardo MD - Last Filed: 04/19/25 21:51> MDM - Skin/Abscess/Foreign Bdy MDM Narrative Medical decision making narrative: Patient presented to ED with swelling, redness to right-sided face. Began yesterday. Has progressed evidence to inferior periorbital region. Patient in no acute distress. Denying any eye complaints, vision changes, pain with extraocular movements. No obvious signs of orbital cellulitis. No eye pain, chemosis, proptosis. Cbc without leukocytosis. CMP is unremarkable. CT facial bones with contrast obtained and showing evidence consistent with preseptal cellulitis. No evidence of abscess. No evidence of septal cellulitis. Discussed lab and imaging findings with patient. Given significant swelling/erythema/progression over two days, will admit overnight for IV antibiotics. Patient in agreement with this plan. Discussed case with Julieta CAMILO hospitalist, accepted patient for admission. Patient started on vancomycin and rocephin 2g per EMRA/Up To Date guidelines. <Zaynab Pretty PA-C - Last Filed: 04/19/25 16:38> Medical Records Attestation: I reviewed the patient's medical records. <Zaynab Pretty PA-C - Last Filed: 04/19/25 16:38> Lab Data Attestation: I reviewed the patient's lab results. <Zaynab Pretty PA-C - Last Filed: 04/19/25 16:38> Result diagrams: 04/19/25 11:14 04/19/25 11:14 <Zaynab Pretty PA-C - Last Filed: 04/19/25 16:38> Labs: Lab Results 04/19/25 Range/Units 11:14 WBC 6.9 (4.5-10.0) K/mm3 RBC 5.30 (4.6-6.20) M/mm3 Hgb 16.1 (14.0-18.0) g/dL Hct 45.7 (42.0-52.0) % MCV 86.2 (80-100) fl MCH 30.4 (26-34) pg MCHC 35.2 (32-36) g/dl RDW 12.2 (11.5-14.5) % Plt Count 252 (150-375) k/mm3 MPV 9.3 (7.4-10.4) fl Immature Gran % (Auto) 0.3 (0-0.5) % Neut % (Auto) 70.6 (45.5-73.1) % Lymph % (Auto) 15.8 L (18.3-44.2) % [place] % (Auto) 11.6 H (2.6-8.5) % Eos % (Auto) 1.0 (0-4.4) % Baso % (Auto) 0.7 (0.2-1.2) % Lymph # (Auto) 1.09 (0.9-3.2) K/mm3 [place] # (Auto) 0.8 H (0.1-0.6) K/mm3 Eos # (Auto) 0.1 (0-0.3) K/mm3 Baso # (Auto) 0.1 (0.0-0.1) K/mm3 Abs Immat Gran (auto) 0.02 (0.00-0.031) K/mm3 Absolute Neuts (auto) 4.9 (1.3-6.7) K/mm3 Absolute Nucleated RBC 0.000 (0.0-0.012) K/mm3 Nucleated RBC % 0.0 (0.0-0.2) % Sodium 138 (137-145) mmol/L Potassium 4.2 (3.4-5.0) mmol/L Chloride 104 (98-107) mmol/L Carbon Dioxide 26 (22-30) mmol/L Anion Gap 8 (4-12) mmol/L BUN 11 (9-20) mg/dL Creatinine 0.81 (0.7-1.3) mg/dL Estim Creat Clear Calc 93 ml/min Estimated GFR > 60 (59 - ) Glucose 111 H (65-110) mg/dL Calcium 9.3 (8.4-10.2) mg/dL Total Bilirubin 0.4 (0.2-1.3) mg/dL AST 39 (17-59) U/L ALT 60 H (6-50) U/L Alkaline Phosphatase 64 (38-126) U/L C-Reactive Protein 1.1 (<1.0) mg/dL Total Protein 8.0 (6.3-8.2) g/dL Albumin 4.4 (3.5-5.1) g/dL <Zaynab Pretty PA-C - Last Filed: 04/19/25 16:38> Lab Results 04/19/25 Range/Units 11:14 WBC 6.9 (4.5-10.0) K/mm3 RBC 5.30 (4.6-6.20) M/mm3 Hgb 16.1 (14.0-18.0) g/dL Hct 45.7 (42.0-52.0) % MCV 86.2 (80-100) fl MCH 30.4 (26-34) pg MCHC 35.2 (32-36) g/dl RDW 12.2 (11.5-14.5) % Plt Count 252 (150-375) k/mm3 MPV 9.3 (7.4-10.4) fl Immature Gran % (Auto) 0.3 (0-0.5) % Neut % (Auto) 70.6 (45.5-73.1) % Lymph % (Auto) 15.8 L (18.3-44.2) % [place] % (Auto) 11.6 H (2.6-8.5) % Eos % (Auto) 1.0 (0-4.4) % Baso % (Auto) 0.7 (0.2-1.2) % Lymph # (Auto) 1.09 (0.9-3.2) K/mm3 [place] # (Auto) 0.8 H (0.1-0.6) K/mm3 Eos # (Auto) 0.1 (0-0.3) K/mm3 Baso # (Auto) 0.1 (0.0-0.1) K/mm3 Abs Immat Gran (auto) 0.02 (0.00-0.031) K/mm3 Absolute Neuts (auto) 4.9 (1.3-6.7) K/mm3 Absolute Nucleated RBC 0.000 (0.0-0.012) K/mm3 Nucleated RBC % 0.0 (0.0-0.2) % Sodium 138 (137-145) mmol/L Potassium 4.2 (3.4-5.0) mmol/L Chloride 104 (98-107) mmol/L Carbon Dioxide 26 (22-30) mmol/L Anion Gap 8 (4-12) mmol/L BUN 11 (9-20) mg/dL Creatinine 0.81 (0.7-1.3) mg/dL Estim Creat Clear Calc 93 ml/min Estimated GFR > 60 (59 - ) Glucose 111 H (65-110) mg/dL Calcium 9.3 (8.4-10.2) mg/dL Total Bilirubin 0.4 (0.2-1.3) mg/dL AST 39 (17-59) U/L ALT 60 H (6-50) U/L Alkaline Phosphatase 64 (38-126) U/L C-Reactive Protein 1.1 (<1.0) mg/dL Total Protein 8.0 (6.3-8.2) g/dL Albumin 4.4 (3.5-5.1) g/dL <Ed Gallardo MD - Last Filed: 04/19/25 21:51> Imaging Data Attestation: I personally reviewed and interpreted this imaging study as follows: < Zaynab Pretty PA-C - Last Filed: 04/19/25 16:38> Radiologist's impression: ITS Impressions Face CT 04/19/25 13:16 IMPRESSION: 1. Right periorbital soft tissue swelling, most likely secondary to preseptal cellulitis. Differential diagnosis includes allergic reaction/angioedema and posttraumatic change. No abscess identified. <Zaynab Pretty PA-C - Last Filed: 04/19/25 16:38> Discharge Plan Discharge Clinical Impression: Preseptal cellulitis of right eye <Zaynab Pretty PA-C - Last Filed: 04/19/25 16:38> Patient Disposition: Still a Patient <Zaynab Pretty PA-C - Last Filed: 04/19/25 16:38> Condition: Stable <WING Pérez Last Filed: 04/19/25 16:38>
[2025-04-19 11:47] VITALS: BP 131/92; PULSE 75; RESP 16; O2SAT 99
[2025-04-19 11:57] LABS: Alanine Aminotransferase 60 U/L (6-50); Albumin Level 4.4 g/dL (3.5-5.1); Alkaline Phosphatase 64 U/L (38-126); Anion Gap 8 mmol/L (4-12); Aspartate Amino Transferase 39 U/L (17-59); Bilirubin,Total 0.4 mg/dL (0.2-1.3); Blood Urea Nitrogen 11 mg/dL (9-20); CRP 1.1 mg/dL (<1.0); Calcium 9.3 mg/dL (8.4-10.2); Carbon Dioxide 26 mmol/L (22-30); Chloride 104 mmol/L (98-107); Estimated CRCL calculation 93 ml/min; Estimated Glomerular Filt Rate > 60; Glucose 111 mg/dL (65-110); Potassium 4.2 mmol/L (3.4-5.0); Sodium 138 mmol/L (137-145); Total Protein 8.0 g/dL (6.3-8.2)
--- NOTE | 2025-04-19 14:13 | PC.NURSE ---
Update by TON lundy and this RN.
[2025-04-19] MEDS: cefTRIAXone 2 GM in SODIUM CHLORIDE 0.9% IV 100 ML 200 ML IVPB (15:33)
[2025-04-19 15:43] VITALS: BP 149/86; PULSE 66; RESP 16; O2SAT 98
--- NOTE | 2025-04-19 15:59 | ADMGEN ---
This patient, Oliverio Rasmussen, was admitted to 3 [facility] Surg Room 314-01. Patient/family oriented to hospital policies and general routines including ID bracelet, bed and alarms, visiting hours, pain management, procedures, bathroom and other care routines, personal items, smoking policy, room service/diet, and visiting hours. Information on how to activate the Rapid Response Team has been discussed. Patient/Family are encouraged to report perceived risks to care and to ask questions if they do not understand what they are told or what they should do.
[2025-04-19 16:00] VITALS: BMI 28.5
[2025-04-19 16:07] VITALS: BP 143/94; PULSE 66; RESP 18; TEMP 35.9; O2SAT 100
[2025-04-19] MEDS: VANCOMYCIN 2,000 MG/NS 500 ML 2,000 MG/500 ML BAG 250 MG IVPB (16:49)
--- NOTE | 2025-04-19 16:50 | P.HP_ITS ---
H&P: HPI History of Present Illness Date/Time: 04/19/25 17:00 Chief Complaint: Right facial swelling. Narrative: This is a 44-year-old male without any significant medical history presented to the emergency department via private vehicle for evaluation of right facial swelling. He noticed what he thought was a pimple around a mole that he has on his right cheek. He went to Urgent Care yesterday and was prescribed doxycycline of which he has taken 2 doses. The redness and swelling have continued to spread and are now up to the right eyelids. There has been no drainage from the area and he denies trying to open the pimple. He has no pain with extra ocular motions. He also denies fever, chills, sweats, nausea, and vomiting. No know history of MRSA. In the ED: He was afebrile on arrival with a blood pressure of 143/95. Labs were without any significant deviations. Facial CT showed findings of right periorbital soft tissue swelling with no abscess identified. He was given ceftriaxone 2 g and vancomycin 2000 mg and he is being admitted in this setting for further IV antibiotics. Review of Systems Review of Systems: 12 systems were reviewed and are negativ e except for as per HPI. [facility] Past Medical History Medical History COVID-19 08/19 Hearing loss in left ear Male erectile dysfunction, unspecified Sebaceous cyst (~2018) Surgical History Surgical History No significant past surgical history Family History Family History Father Diabetes mellitus Family history of glaucoma Grandparent Diabetes mellitus Family history of lung cancer Mother Hypertension Social History Social History (Updated 04/19/25 @ 23:42 by Julieta Condon PA-C) Social History: Surrogate medical decision maker: Elayne Xiao, sibling. Code status: Full code. Smoking status: Never smoker Alcohol intake: current Drinks per week: 1 Substance use: never Substance use type: does not use Do You Feel Safe in your Home?: Yes Lack of Transportation: No Lack of Food: Never True Current Housing: I Have Housing Concerned About Future Housing: No Difficulty Paying Gas/Electric Bills: No Difficulty Paying for Meds: No Currently Unemployed: No Education: High School Diploma/GED Difficulty w/ Childcare or Family Care: No Living arrangements: alone Occupation/Education: occupation Spiritual care concerns: No Agree to blood products: Yes Meds Home Medications and Allergies Home Medications ?Medication ?Instructions ?Recorded ?Confirmed ?Type doxycycline hyclate 100 mg capsule 100 mg PO Q24H 04/19/25 04/19/25 History ibuprofen 200 mg tablet (Advil) 400 mg PO Q6H PRN pain 04/19/25 04/19/25 History mupirocin 2 % topical ointment 1 applic topical BID 04/19/25 04/19/25 History Allergies Allergy/AdvReac Type Severity Reaction Status Date / Time Penicillins Allergy Hives Verified 04/19/25 16:06 Vital Signs Vital Signs - 24 hr 04/19/25 10:37 04/19/25 11:47 04/19/25 15:43 Temperature 98.5 F Pulse Rate 81 75 66 Respiratory Rate 20 16 16 Blood Pressure 143/95 H 131/92 H 149/86 H Pulse Oximetry 98 99 98 Oxygen Delivery Room Air 04/19/25 16:07 Temperature 96.6 F L Pulse Rate 66 Respiratory Rate 18 Blood Pressure 143/94 H Pulse Oximetry 100 Oxygen Delivery Exam Narrative: General: Non-toxic appearing male in no distress. Weight: 82.2 kg. BMI: 28.6. HEENT: PERRL, EOMI. Mild erythema and edema of the right eyelid. There is a 0.5 cm raised, red lesion on the right cheek, possible comedone. There is surrounding erythema, edema, and mild warmth and tenderness. Sclera anicteric. Oral mucosa moist. Neck: Supple. Respiratory: Lungs are clear to auscultation bilaterally. Cardiovascular: Regular rate and rhythm with S1-S2. Gastrointestinal: Abdomen is soft, nontender, and nondistended with positive bowel sounds. No organomegaly. Skin: Warm and dry. Extremities: No cyanosis, clubbing, or edema. Radial and pedal pulses intact. Neurological: Alert. Cranial nerves grossly intact. No gross focal deficits to casual conversation. Psychiatric: Pleasant and cooperative with normal mood and affect. Judgment and insight intact. H&P: Results Labs Labs: Short CBC 04/19/25 Range/Units 11:14 WBC 6.9 (4.5-10.0) K/mm3 Hgb 16.1 (14.0-18.0) g/dL Hct 45.7 (42.0-52.0) % Plt Count 252 (150-375) k/mm3 BMP 04/19/25 11:14 Sodium 138 Potassium 4.2 Chloride 104 Carbon Dioxide 26 BUN 11 Creatinine 0.81 Glucose 111 H Calcium 9.3 Liver Function 04/19/25 Range/Units 11:14 Total Bilirubin 0.4 (0.2-1.3) mg/dL AST 39 (17-59) U/L ALT 60 H (6-50) U/L Alkaline Phosphatase 64 (38-126) U/L Albumin 4.4 (3.5-5.1) g/dL Imaging Face CT 04/19/25 13:16 IMPRESSION: 1. Right periorbital soft tissue swelling, most likely secondary to preseptal cellulitis. Differential diagnosis includes allergic reaction/angioedema and posttraumatic change. No abscess identified. Assessment and Plan Assessment and plan (1) Facial cellulitis: Code(s): L03.211 - Cellulitis of face Status: Acute Plan The patient presented to the emergency department for evaluation of worsening redness, swelling, and pain after taking 2 doses of doxycycline for cellulitis as detailed in the HPI. Labs, imaging, EKG, and all reports were personally reviewed. The nidus of the infection appears to be a comedone on the right mid cheek. The infection now seems to be spreading with clinical findings of preseptal cellulitis. No abscess was noted on CT scan and there is no evidence to suggest infection into the orbit. He was started on ceftriaxone and vancomycin in the emergency department and we will continue with that for now. MRSA screen is pending. Vital signs are stable. His home medications will be reviewed and resumed as appropriate. Findings and treatment plan were discussed with the patient. Questions were solicited and answered to satisfaction. The patient's medical management will be taken over by the hospitalist team in a.m. Quality VTE Prophylaxis VTE prophylaxis: mechanical ordered If No VTE Prophylaxis Answer both mechanical and pharmacologic: Reason no pharmacologic proph: low risk/not indicated The patient has been admitted under observation status. Hospitalist MIPS Advance Care Plan I have confirmed that the patient's Advanced Care Plan is present, code status is documented, or surrogate decision maker is listed in patient medical record.: Yes Medication Reconciliation I have utilized all available resources to obtain, update and review the patients current medications (includes all prescriptions, OTC, herbals, cannabis, and nutritional supplements).: Yes
[2025-04-19 18:59] LABS: MRSA (PCR) NOT DETECTED (NOT DETECTE)
[2025-04-19 20:14] VITALS: BP 140/83; PULSE 70; RESP 20; TEMP 36.1; O2SAT 97
[2025-04-20] MEDS: VANCOMYCIN 1,500 MG/NS 500 ML 1,500 MG/500 ML BAG 250 MG IVPB ×2 (04:05→16:23)
[2025-04-20 05:41] LABS: Hematocrit 46.8 % (42.0-52.0); Hemoglobin 16.3 g/dL (14.0-18.0); Mean Corpuscular HGB Conc 34.8 g/dl (32-36); Mean Corpuscular Hemoglobin 30.3 pg (26-34); Mean Corpuscular Volume 87.0 fl (80-100); Platelet Count Result 252 k/mm3 (150-375); Red Blood Count 5.38 M/mm3 (4.6-6.20); White Blood Count 5.4 K/mm3 (4.5-10.0)
[2025-04-20 05:51] VITALS: BP 118/83; PULSE 57; RESP 20; TEMP 36.2; O2SAT 99
[2025-04-20 06:05] LABS: Alanine Aminotransferase 66 U/L (6-50); Albumin Level 4.4 g/dL (3.5-5.1); Alkaline Phosphatase 66 U/L (38-126); Anion Gap 8 mmol/L (4-12); Aspartate Amino Transferase 44 U/L (17-59); Bilirubin,Total 0.5 mg/dL (0.2-1.3); Blood Urea Nitrogen 11 mg/dL (9-20); Calcium 9.1 mg/dL (8.4-10.2); Carbon Dioxide 27 mmol/L (22-30); Chloride 101 mmol/L (98-107); Estimated CRCL calculation 88 ml/min; Estimated Glomerular Filt Rate > 60; Glucose 97 mg/dL (65-110); Magnesium 2.1 mg/dL (1.6-2.3); Potassium 4.1 mmol/L (3.4-5.0); Sodium 136 mmol/L (137-145); Total Protein 7.7 g/dL (6.3-8.2)
--- NOTE | 2025-04-20 07:25 | P.PNIM_ITS ---
Progress Note: A&P Assessment and Plan (1) Facial cellulitis: Code(s): L03.211 - Cellulitis of face Status: Acute Assessment and Plan: * Face CT: Right periorbital soft tissue swelling, most likely secondary to preseptal cellulitis. Differential diagnosis includes allergic reaction/angioedema and posttraumatic change. No abscess identified. * Wound found on right cheek, possible comedone, surrounding erythema and edema * Started on doxycycline by urgent care on Saturday * Upon admission, started on IV vancomycin and ceftriaxone * Will discuss with ID pharmacist regarding oral antibiotic options * Patient otherwise stable, no pain with EOMs, visual changes or headaches Subjective Date/time seen: 04/20/25 07:25 Interval history: 44-year-old male without any significant medical history presented to the emergency department via private vehicle for evaluation of right facial swelling. He noticed what he thought was a pimple around a mole that he has on his right cheek. 04/20/2025 Patient sitting comfortably in bed at time of exam. Denies any shortness of breath, n/v, headaches, visual changes. Redness/swelling seems to have improved since yesterday, patient reports ?significant improvement in swelling and pain since admission. Denies any pain with extraocular motions. Remains afebrile without leukocytosis. Will discuss with ID pharmacist regarding treatment options, likely can be discharged tomorrow on oral antibiotics. Patient is amenable to this plan. Review of Systems Review of Systems: 12 systems were reviewed and are negativ e except for as per HPI. Exam Narrative: General: Non-toxic appearing male in no distress. Weight: 82.2 kg. BMI: 28.6. HEENT: PERRL, EOMI. Mild erythema and edema of the right eyelid. There is a 0.5 cm raised, red lesion on the right cheek, possible comedone. There is surrounding erythema, edema, and mild warmth and tenderness. Sclera anicteric. Oral mucosa moist. Neck: Supple. Respiratory: Lungs are clear to auscultation bilaterally. Cardiovascular: Regular rate and rhythm with S1-S2. Gastrointestinal: Abdomen is soft, nontender, and nondistended with positive bowel sounds. No organomegaly. Skin: Warm and dry. Extremities: No cyanosis, clubbing, or edema. Radial and pedal pulses intact. Neurological: Alert. Cranial nerves grossly intact. No gross focal deficits to casual conversation. Psychiatric: Pleasant and cooperative with normal mood and affect. Judgment and insight intact. Objective Data Vital Signs Vital Signs: Vital Signs - 24 hr 04/19/25 10:37 04/19/25 11:47 04/19/25 15:43 Temperature 98.5 F Pulse Rate 81 75 66 Respiratory Rate 20 16 16 Blood Pressure 143/95 H 131/92 H 149/86 H Pulse Oximetry 98 99 98 Oxygen Delivery Room Air 04/19/25 16:07 04/19/25 19:38 04/19/25 20:14 Temperature 96.6 F L 97 F L Pulse Rate 66 70 Respiratory Rate 18 20 Blood Pressure 143/94 H 140/83 Pulse Oximetry 100 97 Oxygen Delivery Room Air 04/20/25 05:51 Temperature 97.2 F L Pulse Rate 57 L Respiratory Rate 20 Blood Pressure 118/83 Pulse Oximetry 99 Oxygen Delivery Intake/Output Intake/Output: Intake & Output 04/17/25 04/18/25 04/19/25 04/20/25 23:59 23:59 23:59 23:59 Intake Total 340 500 Balance 340 500 Meds/Results Medications: Active Medications Generic Name Dose Route Start Last Admin Trade Name Freq PRN Reason Stop Dose Admin Acetaminophen 650 mg 04/19/25 15:11 Acetaminophen 325 Mg Tablet PO Q4H PRN Mild Pain (1-3) or Fever Hydrocodone Bitart/Acetaminophen 1 tab 04/19/25 15:11 Hydrocodone/Acetaminophen (*Crx) 5-325 Mg Tablet PO Q4H PRN Pain Rated 4-6 Dextrose 12.5 gm 04/19/25 15:11 Dextrose 50% 25 Gm/50 Ml Syringe IV PUSH PRN PRN Hypoglycemia Protocol Glucagon 1 mg 04/19/25 15:11 Glucagon For Inj 1 Mg Vial IM PRN PRN Hypoglycemia Protocol Glucose 15 gm 04/19/25 15:11 Glucose Oral Gel 15 Gm Of Glucse In 37.5 Gm Tube PO PRN PRN Hypoglycemia Protocol Ceftriaxone Sodium 2 gm/ 100 mls @ 200 mls/hr 04/20/25 15:00 Sodium Chloride IVPB Q24H LING Dextrose 1,000 mls @ 100 mls/hr 04/19/25 15:11 Dextrose 5% 1,000 Ml IVPB PRN PRN Hypoglycemia Protocol Vancomycin HCl 1,500 mg in 500 mls @ 250 mls/hr 04/20/25 05:00 04/20/25 06:05 Vancomycin 1,500 Mg/Ns 500 Ml IVPB Infused Q12H LING Infusion Ondansetron HCl 4 mg 04/19/25 15:11 Ondansetron Inj 4 Mg/2 Ml Vial IV PUSH Q4H PRN Nausea Radiology Results: ITS Impressions Face CT 04/19/25 13:16 IMPRESSION: 1. Right periorbital soft tissue swelling, most likely secondary to preseptal cellulitis. Differential diagnosis includes allergic reaction/angioedema and posttraumatic change. No abscess identified. Labs Labs: Laboratory Results - last 24 hr 04/19/25 04/19/25 04/20/25 11:14 17:41 05:10 WBC 6.9 5.4 RBC 5.30 5.38 Hgb 16.1 16.3 Hct 45.7 46.8 MCV 86.2 87.0 MCH 30.4 30.3 MCHC 35.2 34.8 RDW 12.2 12.3 Plt Count 252 252 MPV 9.3 9.6 Immature Gran % (Auto) 0.3 Neut % (Auto) 70.6 Lymph % (Auto) 15.8 L [place] % (Auto) 11.6 H Eos % (Auto) 1.0 Baso % (Auto) 0.7 Lymph # (Auto) 1.09 [place] # (Auto) 0.8 H Eos # (Auto) 0.1 Baso # (Auto) 0.1 Abs Immat Gran (auto) 0.02 Absolute Neuts (auto) 4.9 Absolute Nucleated RBC 0.000 Nucleated RBC % 0.0 Sodium 138 136 L Potassium 4.2 4.1 Chloride 104 101 Carbon Dioxide 26 27 Anion Gap 8 8 BUN 11 11 Creatinine 0.81 0.86 Estim Creat Clear Calc 93 88 Estimated GFR > 60 > 60 Glucose 111 H 97 Calcium 9.3 9.1 Magnesium 2.1 Total Bilirubin 0.4 0.5 AST 39 44 ALT 60 H 66 H Alkaline Phosphatase 64 66 C-Reactive Protein 1.1 Total Protein 8.0 7.7 Albumin 4.4 4.4 Nasal MRSA (PCR) Not detected Quality VTE Prophylaxis VTE prophylaxis: mechanical ordered
[2025-04-20 07:47] VITALS: O2SAT 99
[2025-04-20 14:00] VITALS: BP 137/91; PULSE 78; RESP 16; TEMP 36.2; O2SAT 100
[2025-04-20] MEDS: cefTRIAXone 2 GM in SODIUM CHLORIDE 0.9% IV 100 ML 200 ML IVPB (14:26)
[2025-04-20 20:10] VITALS: BP 140/79; PULSE 69; RESP 16; TEMP 36.6; O2SAT 99
[2025-04-20 20:15] VITALS: PULSE 69; RESP 16; O2SAT 99
[2025-04-20] MEDS: diphenhydrAMINE HCl CAP 25 MG CAPSULE 50 MG PO (23:12)
[2025-04-21 04:23] LABS: Estimated CRCL calculation 83 ml/min; Estimated Glomerular Filt Rate > 60
[2025-04-21 05:15] VITALS: BP 129/77; PULSE 64; RESP 18; TEMP 37.1; O2SAT 100
[2025-04-21 08:20] LABS: Hematocrit 46.4 % (42.0-52.0); Hemoglobin 16.0 g/dL (14.0-18.0); Mean Corpuscular HGB Conc 34.5 g/dl (32-36); Mean Corpuscular Hemoglobin 30.1 pg (26-34); Mean Corpuscular Volume 87.4 fl (80-100); Platelet Count Result 259 k/mm3 (150-375); Red Blood Count 5.31 M/mm3 (4.6-6.20); White Blood Count 6.1 K/mm3 (4.5-10.0)
[2025-04-21 08:27] LABS: Alanine Aminotransferase 68 U/L (6-50); Albumin Level 4.2 g/dL (3.5-5.1); Alkaline Phosphatase 68 U/L (38-126); Anion Gap 9 mmol/L (4-12); Aspartate Amino Transferase 41 U/L (17-59); Bilirubin,Total 0.3 mg/dL (0.2-1.3); Blood Urea Nitrogen 11 mg/dL (9-20); Calcium 9.0 mg/dL (8.4-10.2); Carbon Dioxide 24 mmol/L (22-30); Chloride 105 mmol/L (98-107); Glucose 91 mg/dL (65-110); Potassium 4.4 mmol/L (3.4-5.0); Sodium 138 mmol/L (137-145); Total Protein 7.4 g/dL (6.3-8.2)
[2025-04-21] MEDS: LINEZOLID 600 MG TABLET PO (10:01)
--- NOTE | 2025-04-21 10:25 | PM.IMPN ---
Subjective Date/time seen: 04/21/25 10:25 Review of Systems Review of Systems: All systems reviewed & are unremarkable except as noted in HPI and below Objective Data Vital Signs Vital Signs: Vital Signs - 24 hr 04/20/25 14:00 04/20/25 20:10 04/20/25 20:15 Temperature 97.1 F L 97.9 F Pulse Rate 78 69 69 Respiratory Rate 16 16 16 Blood Pressure 137/91 H 140/79 Pulse Oximetry 100 99 99 Oxygen Delivery Room Air 04/21/25 05:15 Temperature 98.7 F Pulse Rate 64 Respiratory Rate 18 Blood Pressure 129/77 Pulse Oximetry 100 Oxygen Delivery Intake/Output Intake/Output: Intake & Output 04/18/25 04/19/25 04/20/25 04/21/25 23:59 23:59 23:59 23:59 Intake Total 340 1820 240 Balance 340 1820 240 Meds/Results Medications: Active Medications Generic Name Dose Route Start Last Admin Trade Name Freq PRN Reason Stop Dose Admin Acetaminophen 650 mg 04/19/25 15:11 Acetaminophen 325 Mg Tablet PO Q4H PRN Mild Pain (1-3) or Fever Hydrocodone Bitart/Acetaminophen 1 tab 04/19/25 15:11 Hydrocodone/Acetaminophen (*Crx) 5-325 Mg Tablet PO Q4H PRN Pain Rated 4-6 Dextrose 12.5 gm 04/19/25 15:11 Dextrose 50% 25 Gm/50 Ml Syringe IV PUSH PRN PRN Hypoglycemia Protocol Glucagon 1 mg 04/19/25 15:11 Glucagon For Inj 1 Mg Vial IM PRN PRN Hypoglycemia Protocol Glucose 15 gm 04/19/25 15:11 Glucose Oral Gel 15 Gm Of Glucse In 37.5 Gm Tube PO PRN PRN Hypoglycemia Protocol Dextrose 1,000 mls @ 100 mls/hr 04/19/25 15:11 Dextrose 5% 1,000 Ml IVPB PRN PRN Hypoglycemia Protocol Linezolid 600 mg 04/21/25 09:30 04/21/25 10:01 Linezolid 600 Mg Tablet PO 04/25/25 21:01 600 mg Q12HR LING Administration Ondansetron HCl 4 mg 04/19/25 15:11 Ondansetron Inj 4 Mg/2 Ml Vial IV PUSH Q4H PRN Nausea Radiology Results: ITS Impressions Face CT 04/19/25 13:16 IMPRESSION: 1. Right periorbital soft tissue swelling, most likely secondary to preseptal cellulitis. Differential diagnosis includes allergic reaction/angioedema and posttraumatic change. No abscess identified. Labs Labs: Laboratory Results - last 24 hr 04/21/25 04/21/25 03:59 04:00 WBC 6.1 RBC 5.31 Hgb 16.0 Hct 46.4 MCV 87.4 MCH 30.1 MCHC 34.5 RDW 12.6 Plt Count 259 MPV 10.0 Sodium 138 Potassium 4.4 Chloride 105 Carbon Dioxide 24 Anion Gap 9 BUN 11 Creatinine 0.91 Estim Creat Clear Calc 83 Estimated GFR > 60 Glucose 91 Calcium 9.0 Total Bilirubin 0.3 AST 41 ALT 68 H Alkaline Phosphatase 68 Total Protein 7.4 Albumin 4.2 Vancomycin Trough 10.4
[2025-04-21 13:57] VITALS: BP 137/96; PULSE 101; RESP 16; TEMP 36.6; O2SAT 100
--- NOTE | 2025-04-21 14:45 | P.DS_ITS ---
DS: Admitting Diagnosis Discharge Date 04/21/2025 Admitting Diagnosis Facial Abscess DS: Discharge Diagnosis Discharge Diagnosis (1) Preseptal cellulitis of right eye: Code(s): L03.213 - Periorbital cellulitis Status: Acute DS: Summary Hospital Course Hospital Course: Patient is a 44 year old male that presented to the ER with right facial swelling. He noticed what he thought was a pimple around a mole that he has on his right cheek. He went to Urgent Care and was prescribed doxycycline of which he has taken 2 doses. The redness and swelling have continued to spread and are now up to the right eyelids. There has been no drainage from the area and he denies trying to open the pimple. In the ED: He was afebrile on arrival with a blood pressure of 143/95. Labs were without any significant deviations. Facial CT showed findings of right periorbital soft tissue swelling with no abscess identified. He was given ceftriaxone 2 g and vancomycin 2000 mg and he is being admitted in this setting for further IV antibiotics. Swelling improved. Patient developed a reaction to Vancomycin 04/20 evening, patient stated that he had palpitations, rash on abdomen and itching. Patient transitioned to oral Linezolid 600 mg PO q 12. Status at Discharge Functional status at discharge: independent ambulation Time Spent with Patient Time attestation: Total time spent providing and/or coordinating discharge services: Time spent: Greater than 30 minutes Exam Const: General: comfortable and no acute distress Eyes: Other: There is a 0.5 cm raised, red lesion on the right cheek, possible comedome. There is surrounding erythema, edema, and mild warmth and tenderness. Sclera anicteric. Oral mucosa moist. Resp: Effort & Inspection: normal respiratory effort Auscultation: clear to auscultation bilaterally Cardio: Rate: regular rate Rhythm: regular rhythm GI: GI Palp: Yes Soft to palpation Auscultation: normal bowel sounds Skin: Other: Rash on abdomen fading. One raised clustered area. No itching at present. Neuro: General: gait normal Extrem: General: no pedal edema Psych: Mental Status: mental status grossly normal Affect: normal affect DS: Data Data Completed and Pending Labs on day of discharge: Labs from last 24 hours 04/21/25 04/21/25 04:00 03:59 WBC 6.1 RBC 5.31 Hgb 16.0 Hct 46.4 MCV 87.4 MCH 30.1 MCHC 34.5 RDW 12.6 Plt Count 259 MPV 10.0 Sodium 138 Potassium 4.4 Chloride 105 Carbon Dioxide 24 Anion Gap 9 BUN 11 Creatinine 0.91 Estim Creat Clear Calc 83 Estimated GFR > 60 Glucose 91 Calcium 9.0 Total Bilirubin 0.3 AST 41 ALT 68 H Alkaline Phosphatase 68 Total Protein 7.4 Albumin 4.2 Vancomycin Trough 10.4 Discharge Plan Discharge Attending physician on discharge: Linda Oleary Consulting providers: Giovanny Al; Karlo Banegas Discharging Clinician: Sandra Amin Anticipated Discharge Date/Time: 04/21/25 14:55 Patient Disposition: Home Activity: january shower Diet: regular Wound Care Instructions: other - see discharge instructions Discharge Instructions: * Take all doses of antibiotics. * If you develop fever, increased swelling of face, warmth, drainage, or pain notify provider. If unable to reach provider return to the emergency room. * Get established with primary and dermatology. * Wash area on face with mild soap, water, and pat dry. * Keep hands clean when touching face. * Do not pick at affected area. Thank you for entrusting [facility] with your healthcare! Patient Instructions: Antibiotic Form, Periorbital Cellulitis (GEN) Patient Language: Pashto Stand Alone Forms: General Discharge Information Follow-up/Referrals: Giovanny Al MD [Physician] - 1 Week [facility],Jodi Siegel MD [Non-Staff] - 1 Week Discharge Medications: New linezolid 600 mg Tablet 600 mg PO Q12HR Qty: 9 0RF Continued ibuprofen [Advil] 200 mg tablet 400 mg PO Q6H PRN (Reason: pain) Discontinued doxycycline hyclate 100 mg capsule 100 mg PO Q24H mupirocin 2 % ointment 1 applic TOPICAL BID Patient Comments: to right cheek Date of admission: 04/19/25 15:11 Primary Care Provider: PHYSICIAN,FULL SERVICE SUPERVISOR Admitting Provider: Nathan Evans Attending physician on admission: Nathan Evans Condition: Stable Hospitalist MIPS Heart Failure (Exclusion) Patient has history of Heart Transplant or Left Ventricular Assistive Device?: No IF YES, STOP HERE Heart Failure (Qualifier) Patient has current or prior documentation of LVEF less than or equal to 40%, or mod/servere depressed LVSF?: No IF NO, STOP HERE
== END 2025-04-21 15:55 | disposition home or self-care (01) ==
LOC: ANHED 10:48 → ANH3MEDSUR 16:03
PROVIDERS: Nurse Practitioner Family; Physician Assistant; Admitting Provider Internal Medicine; Emergency Provider Physician Assistant; Visit Provider Family Medicine
DX: L03.213 Periorbital cellulitis (principal); H91.92 Unspecified hearing loss, left ear; Z86.16 Personal history of COVID-19
CPT/HCPCS: 36415; 70487; 80053; 80202; 82565; 83735; 85025; 85027; 86140; 87641; 96365; 96366; 96367; 96375; 99285; A9270; G0378; G0379; J0696; J3373; Q9967